=== PATIENT | male | born 1980 | race Caucasian/White ===

== ENCOUNTER 2025-03-18 08:00 | Outpatient (RCR) | payer OTHER, SELFPAY ==
--- NOTE | 2024-12-19 11:55 | OPREHPOC ---
Outpatient Therapy Plan of Care This is a Multidisciplinary Plan of Care that may contain components documented by all disciplines (PT, OT, and ST.) PT Problem 1 PT Problem #1 Knowledge Deficit PT Goal 1 Goal / Goal Update Pt will be independent in HEP Pt will verbalize understanding of diagnosis and prognosis Target Visit 5 PT Problem 2 PT Problem #2 Pain PT Goal 1 Goal / Goal Update Pt will report greatest pain level at 6/10 or less to improve ADLs and activities Target Visit 10 PT Goal 2 Goal / Goal Update Pt will report greatest pain level at 3/10 or less to improve ADLs and activities Target Visit 20 PT Problem 3 PT Problem #3 Impaired Range of Motion PT Goal 1 Goal / Goal Update Pt will demonstrate cervical spine rotation of 60 or greater bilaterally for improved mobility Target Visit 10 PT Goal 2 Goal / Goal Update Pt will demonstrate cervical spine lateral flexion increase in ROM of 10 degrees or more to show improved mobility Target Visit 20
--- NOTE | 2024-12-19 12:54 | PTOPEVAL1 ---
Assessment and note entered by Norma Cheatham, PT Evaluation Information Assessment Status Evaluation Diagnosis Cervicalgia ICD-10 Condition Codes (PT) Cervicalgia M54.2 Other ICD-10 Condition Codes ( abnormal postures PT) Onset ~3-4 weeks Subjective Information Pt reports in August 2024 woke up and had increased pain. Went to urgent care and they sent to the emergency room. X-rays showed arthritis. After a few weeks went away. Pain has returned Has been seeing chiropractic for 3 weeks and this has helped but is still there. Has been doing stretches, mobilization, and e-stim. Does exercises daily. Is worst in the morning, very stiff and painful and has difficulty looking up. Sleeps on his sides, uses a contour pillow but is unsure if this is helping. Doing stretches in the morning to help improve the neck. Prolonged positions worsen pain Acetominiphen, can't take ibuprofen b/c of blood thinners, was unable to use steroids b/c of the ibuprofen in them. Also takin a muscle relaxer Robaxin for at night. Denies N/T into arms Reported Pain Level Pain Score 2: Self Report Assessment PT Clinical Summary Pt presents with neck pain that has persisted multiple weeks, was initially severe in nature and continues to have severe ratings first in the morning with waking. He reports this happened one year ago as well, findings showed arthritis and then the pain went away after a few weeks. Today he demonstrates decreased ROM of cervical and thoracic spine, decreased ROM of gabriela shoulders, and multiple areas of decreased flexibility all effecting the cervical spine paraspinals and suboccipital musculature. Pt will benefit from physical therapy in order to address deficits, improve alignment, muscle patterning and force couples to offload the cervical spine, and educate on prevention/life style change to decrease flare ups in the future. Plan of Care Interventions Electrical Stimulation,Hot Pack/Cold Pack,Manual Therapy,Mechanical Traction,Neuro Re-education, Patient/Caregiver Education,Therapeutic Activities ,Therapeutic Exercise,Self-Care/Home Management, Ultrasound,Other Other Interventions ARNOLDO Patten PT Services Indicated Yes Treatment Frequency and 1-2x weekly x 10 visits Duration These treatments will address the objective and functional deficits as defined above. The patient will be advanced safely and appropriately in order for the patient to progress towards his/her prior level of function. Additional exercises will be introduced and as well as a comprehensive home exercise program upon discharge, if needed, ?to ensure carryover of functional gains achieved in the clinic. This treatment plan has been reviewed and agreement upon by the patient.
--- NOTE | 2025-02-03 10:46 | PTOPPROG ---
Assessment and note entered by Norma Cheatham, PT Evaluation Information Assessment Status Progress Diagnosis Cervicalgia ICD-10 Condition Codes (PT) Cervicalgia M54.2 Other ICD-10 Condition Codes ( abnormal postures PT) Onset ~3-4 weeks Subjective Information some days are great and everything feels better and some days are worse. Can't find a common denominator. Paying attention to postures at work. Reports two days ago was really bad. Reports Monday was great, scrubbed roof of camper, Monday had a terrible day. No longer going to chiropractic, Has not had to take Robaxim for sleep in a while. Took some acetominophen yesterday morning. self perceived: 70% improved Feels like fewer instances of increased pain. Assessment PT Clinical Summary Pt has attended therapy consistently for 10 visits . He reports feeling 75% improved overall. Demonstrates increased cervical AROM, with continued decreased thoracic ROM though appears improved overall. He does continue to have days in which his pain is severe, but has not required muscle relaxers in some time. Appears to be progressing in the correct direction though has not achieved a consistent level of decreased pain overall. Would benefit from continued therapy to continue progression, focus on scapular stabilization to offload the upper trapezius muscles, and educate on muscle patterning to decreased upper trapezius requirement in high level activities. Plan of Care Interventions Electrical Stimulation,Hot Pack/Cold Pack,Manual Therapy,Mechanical Traction,Neuro Re-education, Patient/Caregiver Education,Therapeutic Activities ,Therapeutic Exercise,Self-Care/Home Management, Ultrasound,Other Other Interventions ARNOLDO Patten PT Services Indicated Yes Treatment Frequency and 1-2x weekly x 10 visits Duration These treatments will address the objective and functional deficits as defined above. The patient will be advanced safely and appropriately in order for the patient to progress towards his/her prior level of function. Additional exercises will be introduced and as well as a comprehensive home exercise program upon discharge, if needed, ?to ensure carryover of functional gains achieved in the clinic. This treatment plan has been reviewed and agreement upon by the patient.
== END 2025-03-19 23:59 | disposition home or self-care (01) ==
LOC: ANHHIPT 08:00
PROVIDERS: PCP Nurse Practitioner Family; Visit Provider Nurse Practitioner Family
DX: M54.2 Cervicalgia (principal)
CPT/HCPCS: 97012; 97014; 97110; 97140; 97162; 97530; 97750; G0283

== ENCOUNTER 2025-03-31 09:55 | Outpatient (RCR) | payer OTHER, SELFPAY ==
--- NOTE | 2025-03-31 09:26 | PTOPDC ---
Assessment and note entered by Norma Cheatham, PT Evaluation Information Assessment Status Discharge Diagnosis Cervicalgia ICD-10 Condition Codes (PT) Cervicalgia M54.2 Other ICD-10 Condition Codes ( abnormal postures PT) Onset ~3-4 weeks Subjective Information Pt reports in the mornings is 95% better. Some mornings will wake up a little more painful. Yesterday did a lot of work like washing camper and overhead activities. Even being worse was only a 2/10. Reports home exercises are going well. Budgets his time for his home exercises in the morning. Reported Pain Level Pain Score 0: Self Report Assessment PT Clinical Summary Pt has attended therapy consistently for neck pain . He has made phenomenal progress though it has taken some times. He reports now he feels 95% improved in the mornings when waking which were the worst times for him. He reports his highest pain level recently has been 2/10 when waking in the morning and this resolves quickly. Pt has met all goals save one for cervical ROM likely related to arthritis. Pt has been educated in continuation of exercises, encouraged to seek maintenance deep tissue work 2-4 times yearly and when to return to therapy if needed in the future. Thus patient is being discharged from therapy due to completion of POC. Plan of Care PT Services Indicated No
== END 2025-03-31 09:55 | disposition home or self-care (01) ==
LOC: ANHHIPT 09:55
PROVIDERS: PCP Nurse Practitioner Family; Visit Provider Nurse Practitioner Family
DX: M54.2 Cervicalgia (principal)
CPT/HCPCS: 97530; 97750

== ENCOUNTER 2025-08-25 14:04 | Outpatient (CLI) | payer OTHER, SELFPAY ==
--- NOTE | ~2025-08-25 | CT_ITS ---
EXAMINATION:CT diagnostic chest wo con DATE: 08/25/2025 14:35 INDICATION: Chest pain. Back pain. No trauma. TECHNIQUE: Computed tomography (CT) of the chest was performed without intravenous contrast. Automated exposure control and iterative reconstruction technique were employed. The dose-length product (DLP) was 289.18 mGy-cm. COMPARISON: None. FINDINGS: No acute or focal pulmonary lesions. No significant interstitial lung disease. Benign calcified granuloma of the right lung, right hilar nodes. No pleural or pericardial effusion. Significant incidental finding is noted below the diaphragm with the partially visualized liver and gallbladder showing indeed distended gallbladder measuring the length of 11 cm in width of 4 cm. Diffuse gallbladder wall thickening is noted. Findings indicate cholecystitis of unknown acuity. Gallbladder wall calcification at the fundus of the gallbladder. IMPRESSION: 1. No acute or focal pulmonary lesions are evident and benign calcified granuloma right lung and calcified lymph nodes of right hilum. 2 no pleural or pericardial effusion. 3. Significant abnormality of gallbladder is noted as described above suggestive of cholecystitis of undetermined acuity. Please correlate with clinical and lab findings. Further evaluation by CT scan with contrast or hepatobiliary nuclear scan is suggested. Reviewed, dictated and finalized at location [facility]. [facility] LEG DERRICK OPERATOR IMPRESSION: 1. No acute or focal pulmonary lesions are evident and benign calcified granulo ma right lung and calcified lymph nodes of right hilum. 2 no pleural or pericar dial effusion. 3. Significant abnormality of gallbladder is noted as described above suggestiv e of cholecystitis of undetermined acuity. Please correlate with clinical and l ab findings. Further evaluation by CT scan with contrast or hepatobiliary nucle ar scan is suggested.
== END 2025-08-25 14:05 | disposition home or self-care (01) ==
LOC: MICIMG 14:04
PROVIDERS: PCP Nurse Practitioner Family; Visit Provider Nurse Practitioner Family
DX: K82.9 Disease of gallbladder, unspecified (principal); R07.9 Chest pain, unspecified
CPT/HCPCS: 71250

== ENCOUNTER 2025-09-18 12:53 | Outpatient (CLI) | payer OTHER, SELFPAY ==
[2025-09-18 13:37] LABS: Alanine Aminotransferase 31 U/L (6-50); Albumin Level 4.2 g/dL (3.5-5.1); Alkaline Phosphatase 67 U/L (38-126); Amylase 84 U/L (30-110); Aspartate Amino Transferase 34 U/L (17-59); Bilirubin,Total 0.6 mg/dL (0.2-1.3); Lipase 73 U/L (23-300); Total Protein 7.4 g/dL (6.3-8.2)
== END 2025-09-18 12:54 | disposition home or self-care (01) ==
LOC: ANHSURGERY 12:56
PROVIDERS: PCP Nurse Practitioner Family; Visit Provider Surgery
DX: Z01.812 Encounter for preprocedural laboratory examination (principal); K81.1 Chronic cholecystitis
CPT/HCPCS: 36415; 80076; 82150; 83690

== ENCOUNTER 2025-09-22 02:37 | Day surgery (SDC) | payer OTHER, SELFPAY ==
[2025-09-17 10:21] VITALS: BMI 28.2
--- NOTE | 2025-09-17 10:37 | PC.NURSE ---
[facility] has started construction of its new state of the art ER which will open Spring 2026. With this, we anticipate parking may be a challenge for some our surgical patients and families. Parking spaces are limited but are available for all Surgical, obstetrics, and ER patients sharing this lot. If you arrive and find you are having a hard time finding a parking space, please note that we understand the challenges, please drive around the hospital and park near Hospital Entrance 1. When you enter this entrance, you can ask a volunteer to direct or take you back to the surgical waiting area to check in. We appreciate everyone?s understanding of these expected challenges while we build for your future. Report to the Outpatient Waiting Room, entrance under the green pavilion located off [address], at time _1000 on date __09/22/2025 . Planned Procedure Time: __1200 .? Time changes happen often and if your time is changed the preop area will call you the afternoon before. - You and your visitor will be asked to self-screen and do not enter if you have any COVID symptoms. Please call surgeon if you need to reschedule. - A mask is optional within the hospital at this time. Patients may have clear liquids (water, carbonated beverages, clear teas, apple juice) until 3 hours prior to surgery with a maximum of 20 ounces. - No food from midnight until time of surgery and no smoking, or chewing tobacco (or any form of nicotine). No chewing gum, candy or mints. - Infants may have breast milk until 4 hours before surgery, formula 6 hours prior to surgery. - Children will be allowed to drink immediately following surgery.? If applicable, please bring a bottle or sippy cup to assist with drinking. Juice, water, soda, and popsicles are readily available.? For infants on formula, please bring formula the day of surgery.? Pacifiers are allowed. Take only the following medications with a SIP of water on the morning of surgery: __Metoprolol DO NOT STOP ANY OF YOUR OTHER PRESCRIPTION MEDICATIONS PRIOR TO SURGERY EXCEPT THE FOLLOWING Hold all vitamins and supplements for 3 days per anesthesiologist. Medications to discontinue per physician _Clopidogrel Date to take last dose____Patient stopped 09/14/2025 per office instructions Please no make-up, nail amharic, hairspray, perfume, deodorant, or body powder the day of surgery.? No jewelry (including any body piercings) or valuables the day of surgery, leave them at home.? Please take a shower or bath the night before, or the morning of, surgery with an antibacterial soap.? Wear comfortable, loose fitting clothing.? Children are encouraged to wear pajamas. - Jewelry must be removed prior to entering the operating room.? Rings and piercings that are not removed may be cut off. - The hospital will not accept responsibility for valuables.? - Please leave all valuables, including medications, at home the day of surgery. If you are going home after surgery, a licensed recycle driver must drive you home.? - NO public transportation without another adult if you receive anesthesia. - We recommend that an adult stay with you for 24 hours following discharge. - We also recommend that you do not drive, make important decision, drink alcoholic beverages, or take any drugs that were not prescribed by your health care provider for at least 24 hours after your discharge time. For Pediatric surgeries, we recommend two adults accompany the child home. Follow any additional instructions given to you from your surgeon. Telephone instructions given to __Dan and asked if any additional questions and then verbalized understanding. Patient advised to call surgeon office or pre surgery nurse liaison [phone] if any additional questions.
[2025-09-22] VITALS (9 sets, daily range): BP systolic 119–131; BP diastolic 72–89; PULSE 51–99; RESP 14–20; TEMP 36.1–36.7; O2SAT 100; BMI 28.8
--- OUTSIDE RECORDS SUMMARY | 2025-09-22 02:40 | XMS_ITS | Encounter Summary ---
Author Organization [facility] Address [address] [place] [id number] Care Team Providers Care Hadoop Infrastructure Architect Name Role Phone Zena Butcher Primary Care Provider [phone] Susanne Lindo Primary Care Provider [phone] Encounter Details Date Type Department Care Team (Late st Contact Info) Description 04/24/2025 Abstract [facility] [address] [place] Social History Tobacco Use Types Packs/Day Years Used Date Smoking Tobacco: Former Smokeless Tobacco: Never Alcohol Use Standard Drinks/Week Comments Not Currently 0 (1 standard drink = 0.6 oz pur e alcohol) Sex and Gender Information Value Date Recorded Sex Assigned at Male 08/04/2025 3:10 PM CONTACT CENTER ASSOCIATE Legal Sex Male 7:00 PM CDT Gender Identity Male 12/02/2021 2:24 PM CONTACT CENTER ASSOCIATE Sexual Orientation Not on file documented as of this encounter Functional Status * RETIRED Are you deaf or do you have serious difficulty hearing Answer Date of Assessment Author Status No 11/01/2021 3:22 PM CONTACT CENTER ASSOCIATE Activ e * RETIRED Are you blind or do you have serious difficulty seeing, even when wearing glasses? Answer Date of Assessment Author Status No 11/01/2021 3:22 PM CONTACT CENTER ASSOCIATE Activ e * Do you have serious difficulty walking or climbing stairs? Answer Date of Assessment Author Status No 11/01/2021 3:22 PM CONTACT CENTER ASSOCIATE Nidhi Holt, R [place] Active * Do you have difficulty dressing or bathing? Answer Date of Assessment Author Status No 11/01/2021 3:22 PM Nidhi Ordaz R N Active * Because of a physical, mental, or emotional condition, do you have difficulty doing errands alone such as visiting a doctor's office or shopping? Answer Date of Assessment Author Status No 11/01/2021 3:22 PM Nidhi Ordaz R N Active documented as of this encounter Mental Status * Because of a physical, mental, or emotional condition, do you have serious difficulty concentrating, remembering, or making decisions? Answer Entry Date Author Status No 11/01/2021 3:22 PM Nidhi Ordaz R N Active documented in this encounter Plan of Treatment Upcoming Encounters Date Type Department Care Team (Late st Contact Info) Description 03/18/2026 12:30 PM CDT Office Visit [facility], [address] [place] [address] Abhilash Blackwell MD [facility]. [address] [place] [address] documented as of this encounter Goals Goal Patient Goal Type Associated Problems Recent Progress Patient-Stated? Author Patient will return to prior living situation and remain independent in ADLs upon discharge from [facility] General Nidhi Bruner, RN documented as of this encounter Procedures Procedure Name Priority Date/Time Associated Diagnosis Comments LIPID PANEL Routine 03/19/2025 COMPREHENSIVE METABOLIC PANEL Routine 04/23/2024 CBC, MANUAL DIFF Routine 04/23/2024 THYROID STIM HORMONE TSH Routine 04/23/2024 documented in this encounter Results * LIPID PANEL (03/19/2025) [facility] CHOLESTEROL 143 TRIGLYCERIDES 145 HDL 47 LDL (CALCULATED) 73 NON HDL CHOLESTEROL 96 us Default History Genericprovider LABORATORY Final Result * COMPREHENSIVE METABOLIC PANEL (04/23/2024) SODIUM S/P/B 140 GLUCOSE 95 mg/dL AST 22 BUN 15 CREATININE S/P/B 1.23 0.7 - 1.3 CALCIUM S/P/B 9.5 POTASSIUM S/P/B 4.4 CHLORIDE S/P/B 102 ALT 22 GFR ESTIMATE 73 us Default History Genericprovider LABORATORY Final Result * CBC, MANUAL DIFF (04/23/2024) Pathologist [facility] WBC 6.0 HGB 15.0 HCT 45.4 PLT 237 us Default History Genericprovider LABORATORY Final Result * THYROID STIM HORMONE TSH (04/23/2024) Pathologist [facility] TSH 2.26 us Default History Genericprovider LABORATORY Final Result documented in this encounter Visit Diagnoses Not on filedocumented in this encounter Care Teams Hadoop Infrastructure Architect Relationship Specialty Start Date End Date Zena Butcher PA [address] [place] [id number] PCP - General PHYSICIAN MANAGER CT 08/04/22 08/03/25 Susanne Lindo FNP [address] [place] [id number] PCP - General Nurse Practitioner Family 08/04/25 documented as of this encounter
--- OUTSIDE RECORDS SUMMARY | 2025-09-22 02:40 | XMS_ITS | Clinical Summary ---
Author Organization [facility] Address [facility] [place] [address] Care Team Providers Care Candy Waffle Assembler Name Role Phone Susanne Lindo Primary Care Provider Allergies No known active allergies Medications nitroglycerin (NITROSTAT) 0.[address] 1 tablet (0.4 mg total) under the tongue every 5 (five) minutes as needed for Chest Pain. Maximum of 3 doses. If using 3rd dose and no relief, call 911 for medical emergency. 25 tablet 1 04/23/2025 Active atorvastatin (LIPITOR) 80 MG tablet Take 1 tablet (80 mg total) by mouth daily. New dose. 90 tablet 3 04/23/2025 Active metoprolol succinate ER (TOPROL-XL) 25 MG 24 hr tablet TAKE 1/2 TABLET BY MOUTH DAILY 45 tablet 2 06/10/2025 Active clopidogrel (PLAVIX) 75 MG tablet TAKE 1 TABLET(75 MG) BY MOUTH DAILY 90 tablet 1 06/10/2025 Active multi vitamin/mineral s (THERA-M ENHANCED) tablet Take 1 tablet by mouth daily. Active Active Problems Problem Noted Date Diagnosed Date Atypical chest pain 04/21/2025 Coronary artery disease invo lving [place] coronary artery of [place] heart without angina pectoris 06/14/2022 CAD S/P percutaneous coronary angioplasty 2021 ST elevation myocardial infa rction involving right coronary artery 06/14/2022 STEMI (ST elevation myocardial infarction) 11/01 Resolved Problems Problem Noted Date Diagnosed Date Resolved Date Preop cardiovascular exam 09/09/2025 Encounters Date Type Department Care Team Description 09/10/2025 10:00 AM AMBULANCE MECHANIC Office Visit [facility], [address] [address] Linda Meredith PA-C Surgical Clearance 09/10/2025 Travel 09/08/2025 Telephone [facility], [address] [address] Abhilash Blackwell MD Surgical Clearance 08/04/2025 2:20 PM AMBULANCE MECHANIC - 08/04/2025 5:16 PM AMBULANCE MECHANIC Emergency [facility] Emergency Room [id number] [place] [address] [phone] Michael Zarate MD Chest Pain Discharge Disposition: Home or Self Care (Routine Discharge) 08/04/2025 1:00 PM AMBULANCE MECHANIC Office Visit [facility] Family [facility] Internal [facility] [address] [place] [address] Sean Manzano MD Indigestion (Since last week-tightness to chest and radiates to back-off and on) 08/04/2025 Travel 07/22/2025 7:01 AM CDT - 07/22/2025 11:59 PM CDT Hospital Encounter [facility] [id number] [place] [id number] Linda Meredith PA-C Discharge Disposition: Home or Self Care (Routine Discharge) 07/22/2025 7:00 AM CDT Hospital Encounter [facility] [address] [place] [address] Susanne Lindo FNP Discharge Disposition: Home or Self Care (Routine Discharge) 07/22/2025 Telephone [facility], [address] [address] Hazel Alamo RN Lab Results 07/22/2025 Orders Only [facility] [address] [place] [id number] Linda Meredith PA-C 07/22/2025 Orders Only [facility] [address] [place] [address] Susanne Lindo FNP 07/22/2025 Travel from Last 3 Months Immunizations Immunization Administration Dates Next Due PFIZER COVID-19 (ORIGINAL FO RMULATION, PURPLE CAP) mRNA, LNP-S, PF, 30 MCG/0.3 ML DOSE 08/09/2021 Family History Medical History Relation Comments Hypertension Father Relation Status Comments Father Alive Social History Tobacco Use Types Packs/Day Years Used Date Smoking Tobacco: Former Smokeless Tobacco: Never Tobacco Cessation:Counseling Given: No Alcohol Use Standard Drinks/Week Comments Not Currently 0 (1 standard drink = 0.6 oz pur e alcohol) PHQ-2 Answer Date Recorded Patient Health Questionnaire-2 Score 0 08/04/2025 Sex and Gender Information Value Date Recorded Sex Assigned at Male 08/04/2025 3:10 PM AMBULANCE MECHANIC Legal Sex Male 7:00 PM CDT Gender Identity Male 12/02/2021 2:24 PM AMBULANCE MECHANIC Sexual Orientation Not on file Last Filed Vital Signs Vital Sign Reading Time Taken Comments Blood Pressure 118/84 09/10/2025 10:19 AM AMBULANCE MECHANIC Pulse 53 09/10/2025 10:00 AM AMBULANCE MECHANIC Temperature 36.2 C (97.2 F) 08/04/2025 5:16 PM AMBULANCE MECHANIC Respiratory Rate 16 08/04/2025 5:16 PM AMBULANCE MECHANIC Oxygen Saturation 97% 09/10/2025 10:00 AM AMBULANCE MECHANIC Inhaled Oxygen Concentration - - Weight 80.7 kg (178 lb) 09/10/2025 10:00 AM AMBULANCE MECHANIC Height 167.6 cm (5' 6) 09/10/2025 10:00 AM AMBULANCE MECHANIC Body Mass Index 28.73 09/10/2025 10:00 AM AMBULANCE MECHANIC Plan of Treatment Upcoming Encounters Date Type Department Care Team (Late st Contact Info) Description 03/18/2026 12:30 PM CDT Office Visit [facility], [address] [place], [place] [phone] Abhilash Blackwell MD [facility]. [address] [place] [phone] Health Maintenance Due Date Last Done Comments Colorectal Cancer Screening Colonoscopy (10 Years) 1978 Annual Physical 1981 Hepatitis C 02/09/1996 DTaP, Tdap and Td Vaccines ( 1 - Tdap) 1997 Hepatitis B Vaccines (1 of 3 - 19+ 3-dose series) 1997 Pneumococcal Vaccine: Pediatrics (0 to 5 Years) and At-Risk Patients (6 to 49 Years) (1 of 2 - PCV) 1997 COVID-19 Vaccine (3 - 2024-2 6 season) 2025 08/09/2021, 07/19/2021 Influenza Adult (#1) 2025 PHQ-2 (Physician [place]) Completed 08/04/2025 Hepatitis A Vaccines Aged Out No long er eligible based on patient's age to complete this topic Meningococcal B Vaccine Aged Out No l onger eligible based on patient's age to complete this topic Meningococcal Vaccine Aged Out No anna yasmani eligible based on patient's age to complete this topic RSV Immunizations Under 20 Months Aged Out No longer eligible b ased on patient's age to complete this topic Goals Goal Patient Goal Type Associated Problems Recent Progress Patient-Stated? Author Patient will return to prior living situation and remain independent in ADLs upon discharge from hospital General Nidhi Bruner RN Procedures Procedure Name Priority Date/Time Associated Diagnosis Comments TROPONIN, QUANT STAT 08/04/2025 4:23 PM AMBULANCE MECHANIC XR CHEST PORTABLE STAT 08/04/2025 2:5 5 PM AMBULANCE MECHANIC TROPONIN, QUANT STAT 08/04/2025 2:40 PM AMBULANCE MECHANIC COMPREHENSIVE METABOLIC PANEL STAT 08/04/2025 2:40 PM AMBULANCE MECHANIC CBC W/DIFF AUTOMATED STAT 08/04/2025 2:40 PM AMBULANCE MECHANIC ECG 12-LEAD Routine 08/04/2025 2:26 PM AMBULANCE MECHANIC THYROID STIM HORMONE TSH Routine 07/22/2025 7:12 AM CDT Coronary atherosclerosis of [place] coronary artery Special screening for malignant neoplasm of prostate Impaired fasting glucose PROSTATE CANCER SCREENING; PSA TEST Routine 07/22/2025 7:12 AM CDT Coronary atherosclerosis of [place] coronary artery Special screening for malignant neoplasm of prostate Impaired fasting glucose HEMOGLOBIN, GLYCOSYLATED Routine 07/22/2025 7:12 AM CDT Coronary atherosclerosis of [place] coronary artery Special screening for malignant neoplasm of prostate Impaired fasting glucose COMPREHENSIVE METABOLIC PANEL Routine 07/22/2025 7:12 AM CDT Coronary atherosclerosis of [place] coronary artery Special screening for malignant neoplasm of prostate Impaired fasting glucose CBC W/DIFF AUTOMATED Routine 07/22/2025 7:12 AM CDT Coronary atherosclerosis of [place] coronary artery Special screening for malignant neoplasm of prostate Impaired fasting glucose LIPID PANEL Routine 07/22/2025 7:12 AM CDT Coronary atherosclerosis of [place] coronary artery from Last 3 Months Results * TROPONIN, QUANT (08/04/2025 4:23 PM AMBULANCE MECHANIC) Only the most recent of2 resultswithin the time period is included. TROPONIN I HIGH SENSITIVITY 4 0 - 75 ng/L 08/04/2025 4:51 PM AMBULANCE MECHANIC [facility] Comment: HIGH DOSES OF BIOTIN, TROPONIN-SPECIFIC AUTOANTIBODIES, AND ANTIBODY THERAPY CONTAINING HAMA MAY INTERFERE WITH THIS TEST RESULT. CORRELATION TO CLINICAL HISTORY AND PRESENTATION RECOMMENDED. 08/04/2025 4:23 PM AMBULANCE MECHANIC us Michael Zarate MD LABORATORY Final Result [facility] [address] [place] [address], [place] [phone] * XR CHEST PORTABLE (08/04/2025 2:55 PM AMBULANCE MECHANIC) Anatomical Region Laterality Modality Chest Radiographic Thao ging 08/04/2025 3:00 PM AMBULANCE MECHANIC Impressions 08/04/2025 3:07 PM AMBULANCE MECHANIC IMPRESSION: No acute cardiopulmonary findings. Ordered By: MICHAEL ZARATE Interpreted By: Flo Stallworth MD, 08/04/2025 3:00 PM Narrative 08/04/2025 3:07 PM AMBULANCE MECHANIC [facility] [address] [place] [address] XR CHEST PORTABLE INDICATION: chest pain TECHNIQUE: Portable AP view of the chest. COMPARISON: Prior chest radiograph 08/04/2022 FINDINGS: Cardiomediastinal silhouette is within normal limits. No pulmonary vascular congestion. No focal pulmonary consolidation. No sizable pleural effusions or pneumothorax. Procedure Note Flo Stallworth MD - 08/04/2025 [facility] [address] [place] [address] XR CHEST PORTABLE INDICATION: chest pain TECHNIQUE: Portable AP view of the chest. COMPARISON: Prior chest radiograph 08/04/2022 FINDINGS: Cardiomediastinal silhouette is within normal limits. No pulmonaryvascular congestion. No focal pulmonary consolidation. No sizable pleuraleffusions or pneumothorax. IMPRESSION: No acute cardiopulmonary findings. Ordered By: MICHAEL ZARATE Interpreted By: Flo Stallworth MD, 08/04/2025 3:00 PM Michael Zarate MD GENERAL IMAGING Final Result * (ABNORMAL) COMPREHENSIVE METABOLIC PANEL (08/04/2025 2:40 PM AMBULANCE MECHANIC) Only the most recent of2 resultswithin the time period is included. GLUCOSE 80 70 - 99 MG/DL 08/04/2025 3:00 PM AMBULANCE MECHANIC [facility] BUN 10 7 - 18 MG/DL 08/04/2025 3:00 PM AMBULANCE MECHANIC [facility] CREATININE S/P/B 1.03 0.7 - 1.3 MG/DL 08/04/2025 3:00 PM [facility] SODIUM S/P/B 144 136 - 145 MMOL/L 08/04/2025 3:00 PM [facility] POTASSIUM S/P/B 3.8 3.5 - 5.1 MMOL/L 08/04/2025 3:00 PM [facility] CHLORIDE S/P/B 103 100 - 108 MMOL/L 08/04/2025 3:00 PM [facility] CO2 33.4(H) 21 - 32 MMOL/L 08/04/2025 3:00 PM [facility] CALCIUM S/P/B 9.0 8.5 - 10.1 MG/DL 08/04/2025 3:00 PM [facility] BILIRUBIN TOTAL S/P/B 0.6 0.2 - 1.2 MG/DL 08/04/2025 3:00 PM [facility] TOTAL PROTEIN S/P/B 7.6 6.4 - 8.2 G/DL 08/04/2025 3:00 PM [facility] ALBUMIN S/P/B 4.1 3.4 - 5.0 G/DL 08/04/2025 3:00 PM [facility] AST 24 15 - 37 U/L 08/04/2025 3:00 PM [facility] ALT 38 16 - 60 U/L 08/04/2025 3:00 PM [facility] ALKALINE PHOSPHATASE S/P/B 81 50 - 136 U/L 08/04/2025 3:00 PM [facility] ANION GAP 7.6 5 - 15 MMOL/L 08/04/2025 3:00 PM [facility] BUN CREATININE RATIO 9.7 6 - 26 08/04/2025 3:00 PM AMBULANCE MECHANIC [facility] A/G RATIO 1.2 1.0 - 2.0 RATIO 08/04/2025 3:00 PM AMBULANCE MECHANIC [facility] GFR ESTIMATE >90 >90 ML/MIN/1.7 3 M2 08/04/2025 3:00 PM [facility] Comment: NOTE: eGFR is not calculated for patients <18 years of age. This is an estimated GFR calculation using the new CKD EPI creatinine equation without race and so does not require a correction factor for race. This estimated GFR should not be used for calculating drug doses. 08/04/2025 2:40 PM AMBULANCE MECHANIC us Michael Zarate MD LABORATORY Final Result [facility] [address] [place] [address], * (ABNORMAL) CBC W/DIFF AUTOMATED (08/04/2025 2:40 PM AMBULANCE MECHANIC) Only the most recent of2 resultswithin the time period is included. WBC 6.36 4.4 - 11.0 x10'3/uL 08/04/2025 2:48 PM [facility] RBC 4.91 4.50 - 5.90 x10'6/uL 08/04/2025 2:48 PM AMBULANCE MECHANIC [facility] HGB 15.2 14.0 - 17.5 G/DL 08/04/2025 2:48 PM [facility] HCT 46.2 41.5 - 50.4 % 08/04/2025 2:48 PM AMBULANCE MECHANIC [facility] MCV 94.1 80.0 - 96.0 FL 08/04/2025 2:48 PM [facility] MCH 31.0 26.5 - 31.4 PG 08/04/2025 2:48 PM [facility] MCHC 32.9 31.9 - 34.8 G/DL 08/04/2025 2:48 PM [facility] RDW 12.1(L) 12.3 - 14.3 % 08/04/2025 2:48 PM [facility] PLT 223 151 - 353 x10'3/uL 08/04/2025 2:48 PM [facility] MPV 9.4(L) 9.7 - 11.9 FL 08/04/2025 2:48 PM [facility] RBC MORPHOLOGY NORMAL 08/04/2025 2:48 PM [facility] PLT MORPH. NORMAL 08/04/2025 2:48 PM [facility] WBC MORPHOLOGY NORMAL 08/04/2025 2:48 PM [facility] LYMPHOCYTES % 46.4(H) 15.8 - 45.0 % 08/04/2025 2:48 PM [facility] NEUTROPHILS % 43.9 42.1 - 71.9 % 08/04/2025 2:48 PM [facility] MONOCYTES % 7.4 5.7 - 12.5 % 08/04/2025 2:48 PM [facility] EOSINOPHILS 1.6 0.0 - 5.6 % 08/04/2025 2:48 PM [facility] BASOPHILS 0.5 0.0 - 1.3 % 08/04/2025 2:48 PM [facility] ABS. NEUTROPHILS 2.80 1.40 - 6.00 x10'3/uL 08/04/2025 2:48 PM [facility] IMMATURE GRANS % 0.2 0.0 - 0.5 % 08/04/2025 2:48 PM [facility] ABS. LYMPHOCYTES 2.95 0.80 - 4.70 x10'3/uL 08/04/2025 2:48 PM AMBULANCE MECHANIC [facility] 08/04/2025 2:40 PM AMBULANCE MECHANIC Michael Zarate MD LABORATORY Final Result [facility] [address] [place] [address], * ECG 12 lead (08/04/2025 2:26 PM AMBULANCE MECHANIC) ECG QT 400 [facility] RAD ECG QTC 405 [facility] RAD 08/04/2025 2:26 PM AMBULANCE MECHANIC Narrative [facility] RAD - 08/06/2025 7:48 AM AMBULANCE MECHANIC [facility] Test Date: 2025-08-04 Pat Name: HERMES WANG Department: 85 Room: EXAM 3 Gender: Male Telesales Supervisor: : 1980 Requested By: MICHAEL ZARATE Order Number: [id number] Reading MD: Bert Malik Measurements Intervals [place] Rate: 61 P: 25 MD: 164 QRS: 21 QRSD: 91 T: -10 QT: 400 QTc: 405 Interpretive Statements SINUS RHYTHM POSSIBLE INFERIOR MYOCARDIAL INFARCTION , OF INDETERMINATE AGE [30 ms Q WAVE IN II/aVF] BULANCE MECHANIC Procedure Note Bert Malik MD - 08/06/2025 [facility] Test Date: 2025-08-04 Pat Name: HERMES WANG Department: 85 Room: EXAM 3 Gender: Male Telesales Supervisor: : 1980 Requested By: MICHALE ZARATE Order Number: [id number] Sanya MD: Bert Malik Measurements Intervals [place] Rate: 61 P: 25 MD: 164 QRS: 21 QRSD: 91 T: -10 QT: 400 QTc: 405 Interpretive Statements SINUS RHYTHM POSSIBLE INFERIOR MYOCARDIAL INFARCTION , OF INDETERMINATE AGE [30 ms QWAVE IN II/aVF] BULANCE MECHANIC Michael Zarate MD ECG ORDERABLES Final Result Performing Organization Address [facility] de Phone Number [facility] * (ABNORMAL) HEMOGLOBIN, GLYCOSYLATED (07/22/2025 7:12 AM CDT) HGB A1C 6.2(H) <5.7 % 07/22/2025 8:17 AM CDT [facility] Comment: INCREASED RISK OF DIABETES <5.7% NON-DIABETES 5.7-6.4% INCREASED RISK FOR FUTURE DIABETES > OR = 6.5 CONSISTENT WITH DIABETES STANDARDS OF MEDICAL CARE IN DIABETES-2010 DIABETES CARE, 33(SUPP 1): S1-S61,2010 ESTIMATED AVG GLUCOSE 131 mg/dL 07/22/2025 8:17 AM CDT [facility] 07/22/2025 7:12 AM CDT Susanne Lindo FIELD MARKETER LABORATORY Final Resul t Performing Organization Address [facility] de Phone Number [facility] [address] [place] [address], * PROSTATE SPECIFIC ANTIGEN,SCREENING (07/22/2025 7:12 AM CDT) PSA 1.68 <4.00 NG/ML 07/22/2025 7:56 AM CDT [facility] Comment: Test was performed using the Siemens method. Results obtained with other assay methods or kits cannot be used interchangeably with results obtained by the Siemens method. 07/22/2025 7:12 AM CDT us Susanne R Guicho FIELD MARKETER OTHER Final Resul t [facility] [address] [place] [address], [place] [phone] * (ABNORMAL) LIPID PANEL (07/22/2025 7:12 AM CDT) CHOLESTEROL 100 <200.0 MG/DL 07/22/2025 7:41 AM CDT [facility] TRIGLYCERIDES 68 <150 MG/DL 07/22/2025 7:41 AM T [facility] HDL 34(L) >40.0 MG/DL 07/22/2025 7:41 AM T [facility] LDL (CALCULATED) 52 <100 MG/DL 07/22/20 7:41 AM [facility] Comment:CALCULATED USING THE FRIEDEWALD EQUATION NON HDL CHOLESTEROL 66 <130 MG/DL 07/22 7:41 AM T [facility] CHOL/HDL RATIO 2.9 0.0 - 4.5 07/22/2025 7:41 AM [facility] VLDL CALCULATION 14 5 - 55 MG/DL 07/22/2025 7:41 AM T [facility] LIPID INTERPRETATION 07/22/2025 7:41 AM T [facility] Comment: [facility] REPORT RECOMMENDATIONS: ADULT CHILD LOW RISK: CHOLESTEROL <200 <170 TRIGLYCERIDE <150 --- HDL >=60 --- LDL <100 <110 BORDERLINE: CHOLESTEROL 200-239 170-199 TRIGLYCERIDE 150-199 --- HDL 40-59 --- LDL 100-159 110-129 HIGH RISK: CHOLESTEROL >=240 >=200 TRIGLYCERIDE >=200 --- HDL <40 --- LDL >=160 >=130 07/22/2025 7:12 AM CDT Linda Meredith PA-C LABORATORY Final Resul t Performing Organization Address City/[facility]/ZIP Co de Phone Number [facility] [address] [place] [address], [place] [phone] * (ABNORMAL) THYROID STIM HORMONE TSH (07/22/2025 7:12 AM CDT) TSH 4.256(H) 0.358 - 3.74 uIU/ML 07/22/2025 7:52 AM CDT [facility] Comment: HIGH DOSES OF BIOTIN MAY INTERFERE WITH THIS TEST RESULT. CORRELATION TO CLINICAL HISTORY AND PRESENTATION RECOMMENDED. 07/22/2025 7:12 AM CDT Susanne MENDEZ LABORATORY Final Resul t Performing Organization Address City/[facility] Co de Phone Number [facility] [address] [place] [address], [place] [phone] from Last 3 Months Insurance Advance Directives * Full Code (Latest Code Status on File) Date Activated Date Inactivated Comments 11/01/2021 3:28 PM 11/03/2021 12:46 PM Care Teams Candy Waffle Assembler Relationship Specialty Start Date End Date Susanne Lindo FNP [address] [place] [address] PCP - General Nurse Practitioner Family 08/04/25
--- NOTE | 2025-09-22 07:18 | WPDHPUPDATE1 ---
History and Physical Update Update Date/Time: 09/22/25 07:18 History and Physical has been reviewed, including an updated exam of the patient. There are NO changes in the patient's condition. Risks, benefits, and alternatives have been discussed and questions answered. Patient agrees to proceed with procedure.
[2025-09-22] MEDS: ACETAMINOPHEN 500 MG TABLET 1000 MG PO (10:34)
[2025-09-22] MEDS: KETOROLAC 15 MG/ML VIAL (*BKC) IV PUSH (10:34)
[2025-09-22] MEDS: LACTATED RINGERS 1,000 ML 30 ML IV CONT ×2 (10:34→14:25)
--- NOTE | 2025-09-22 12:57 | WPDANESEPPF ---
Anes - Initial Pre Proc Eval Procedure: Operation Date: 09/22/25 12:00 Proposed Procedures p Laparoscopic Cholecystectomy - Latasha Irby MD Date/Time: 09/22/25 12:57 Surgeon: Latasha Irby MD Pre Op Diagnosis: chronic cholecystitis Patient Data Age: 45 Gender: M Height: 1.68 m Weight: 81.2 kg Last Vital Signs Temp 36.1 C L 09/22/25 10:51 Pulse 51 L 09/22/25 10:51 Resp 16 09/22/25 10:51 BP 130/82 09/22/25 10:51 Pulse Ox 100 09/22/25 10:51 O2 Del Method Room Air 09/22/25 10:51 Allergies Allergy/AdvReac Type Severity Reaction Status Date / Time No Known Allergies Allergy Verified 09/22/25 10:49 Home Medications ?Medication ?Instructions ?Recorded ?Confirmed ?Type clopidogrel 75 mg tablet 75 mg PO DAILY 06/14/23 09/17/25 History metoprolol tartrate 25 mg tablet 12.5 mg PO DAILY 06/14/23 09/22/25 History atorvastatin 40 mg tablet 80 mg PO QPM 05/21/25 09/22/25 History multivitamin (Daily Multi-Vitamin 1 tablet PO DAILY 09/17/25 09/22/25 History tablet) ECG: SR Patient hx anesthesia problems: none Family hx anesthesia problems: none Results Review: All pre-operative results and documents have been reviewed as part of the pre-operative evaluation. [facility] Past Medical History Medical History Heart attack Surgical History Surgical History Hx of heart artery stent 2021 Family History Family History Father Hypertension Social History Social History Social History: 05/14/25 patient declined SDOH Smoking packs per day: 2 Smoking cigarettes per day: 40.0 Years smoked: 5 Smoking pack-years: 10.00 Smoking status: Former smoker Tobacco type: cigarettes Smoking end date: 10/02/99 Alcohol intake: current Alcohol use details: Socially 2 a month Substance use: never Substance use type: does not use Lack of Transportation: No Lack of Food: Never True Current Housing: I Have Housing Concerned About Future Housing: No Difficulty Paying Gas/Electric Bills: No Difficulty Paying for Meds: No Currently Unemployed: No Education: Bachelor's Degree Difficulty w/ Childcare or Family Care: No Living arrangements: with family Occupation/Education: occupation Additional occupation/education comments: IT for [employer] Gender identity (if verbalized by the patient): Male Spiritual care concerns: No Agree to blood products: Yes Anes - Eval Final PreProcedure Day of Procedure 09/22/25 12:57 Patient weight: overweight Heart: regular rate and rhythm Lungs: normal air movement Airway: Mallampati scale class II Neurological: alert and oriented Last oral intake: >/= 8 hours ASA classification: III Emergent: no Anesthetic plan: proceed Anesthesia type and monitoring: general ETT and standard monitoring Results Review: All pre-operative results and documents have been reviewed as part of the pre-operative evaluation. Informed Consent: The patient's anesthetic plan and its attendant risks and benefits were discussed with the patient/family/POA. Questions were solicited and answers provided to the satisfaction of the patient/family/POA.
[2025-09-22] MEDS: ceFAZolin 2 GM in SODIUM CHLORIDE 0.9% IV 50 ML 100 ML IVPB (13:02)
[2025-09-22] MEDS: BUPIVACAINE/EPINEPHRINE 0.5% 30 ML VIAL INFILTRATE (13:02)
--- NOTE | 2025-09-22 13:37 | S_PTH ---
PATIENT: Hermes Wang LOC: [facility] U#:[id number] AGE/SX: 45/M ROOM: RE09/22/[address]: Latasha Irby MD : 1980 BED: DIS: 09/22/2025 SPEC #: [id number] RECD: 09/22/25 14:30 STATUS: MARJ REGumaro #: [id number] REINA: 09/22/25 13:[address]: Latasha Irby DEPT: [facility] RECD BY: Sapna Strange ENTERED: 09/22/25 14:31 SP TYPE: Surgical OTHR DR: Susanne Lindo APRN Tissues: A - Gallbladder Procedures: Hematoxylin and Eosin Stain Gross and Microscopic Level 3
--- NOTE | 2025-09-22 14:08 | P.OP_ITS ---
Procedure Note - Detailed Date of Procedure 09/22/25 Pre-op Diagnosis chronic cholecystitis, cholelithiasis Post-op Diagnosis Same Procedure Performed Laparoscopic cholecystectomy Surgeon Latasha Irby MD Anesthesia General and Local Indications 45 y/o M c chronic cholecystitis, cholelithiasis Findings Cholecystitis, cholelithiasis Description of Procedure The patient was taken to the operating room placed in the supine position. After adequate induction of general anesthesia, the patient was prepped and draped in normal sterile fashion. A time-out was then performed to verify the patient's identity as well as the procedure being performed. I then made a 5 mm incision in the infraumbilical region. Through this, a Veress needle was placed into the peritoneal cavity and CO2 gas was then insufflated. After adequate pneumoperitoneum was achieved, the Veress needle was removed and a 5 mm optiview trocar was placed through this incision under direct visualization. I then placed the laparoscope through this trocar site and under direct visualization placed a further 12 mm subxiphoid port as well as 2 additional 5 mm ports in the right upper abdomen. The gallbladder was then identified and was noted to be inflamed, distended, and full of gallstones. Given the amount of inflammation and distention, the gallbladder was decompressed with an ovarian needle. Once decompressed, I was able to place a grasper at the dome of the gallbladder and this was retracted anterior and cephalad up over the liver. A 2nd retractor was then placed at the infundibulum and retracted laterally, this allowed visualization of the triangle of Calot. I then was able to visualize the cystic duct in its entirety from its proximal insertion into the gallbladder, to its distal junction with the common hepatic/common bile duct junction. At this point, I carefully skeletonized the proximal cystic duct with the [place] dissector. I then clipped and transected the proximal cystic duct. Next I visualized the cystic artery. Again the artery was skeletonized, clipped, and transected. I then used the Bovie cautery to take down the peritoneal attachments of the gallbladder off the liver bed. This was somewhat difficult given the amount of inflammation in the posterior space. Once the gallbladder specimen was completely detached, an endo-pouch was placed through the 12 mm port site. I then placed the gallbladder specimen into the Endo pouch and removed the endo-pouch from the 12 mm port site. The specimen will now be sent to pathology for further review. I then copiously irrigated the right u pper quadrant. Some mild oozing was noted in the liver bed and this was controlled with the bovie cautery. Hemostasis was noted in the liver bed, the clips were noted to be in good position on both the cystic duct stump and the cystic artery stump. No other pathology was noted in the right upper quadrant. I then moved the laparoscope to the subxiphoid port. No iatrogenic injury or other pathology was noted in the lower abdomen. I then closed the 12 mm trocar site under direct visualization using the Mir cone and 0 Vicryl suture. At this point, the abdomen was desufflated and all ports removed. All port sites were then closed with 4.O Monocryl subcuticular sutures. Dermabond was placed on each incision. The patient tolerated the procedure well, was extubated in the operating room postoperative and will be transferred to the recovery room in stable condition Estimated Blood Loss 10 Drains No Packing No Pathology Yes Complications No immediate complications Condition Stable Disposition PACU [facility] Billing Surgery - Charge Forward: Surgery Billing
--- NOTE | 2025-09-22 14:55 | ECG_ITS ---
Test Date: 2025-09-22 15:08:53 Measurements Intervals [place] Rate: 57 P: 51 DC: 161 QRS: 9 QRSD: 106 T: -13 QT: 424 QTc: 415 Interpretive Statements SINUS BRADYCARDIA BORDERLINE ST-T WAVE ABNORMALITY- INFERIOR LEADS BASELINE ARTIFACT- I, II, III, AVR, AVL, AVF, V1-V6 BORDERLINE ECG No previous ECG available for comparison Electronically Signed On 09-22-2025 16:26:03 RADIOLOGIC TECHNICIAN by Randy Baires D.O.
--- NOTE | 2025-09-22 15:46 | SUR.PHASEII ---
1546 - dr. beth aware of EKG. speaking with pt in outpatient. ok to discharge home
== END 2025-09-22 16:18 | disposition home or self-care (01) ==
PROVIDERS: PCP Nurse Practitioner Family; Visit Provider Surgery
PROC: 0FT44ZZ Resection of Gallbladder, Percutaneous Endoscopic Approach (ICD-10-PCS; CPT 47562; principal; 2025-09-22 12:00)
DX: K80.10 Calculus of gallbladder with chronic cholecystitis without obstruction (principal); Z87.891 Personal history of nicotine dependence
CPT/HCPCS: 47562; 88304; 93005; J0690; A9270; J1100; J1885; J2003; J2250; J2405; J2704; J3010; J7120